=== PATIENT | male | born 2005 | race Caucasian/White ===

== ENCOUNTER 2023-01-21 12:28 | Emergency (ER) | payer MEDICAID ==
[~2023-01-21] VITALS: Ht 175.3 cm; Wt 77.3 kg
[2023-01-21 12:32] VITALS: BP 136/83
[2023-01-21 12:59] LABS: BASOPHILS % (AUTO) 0.5 % (0-1); EOSINOPHILS % (AUTO) 0 % (0-6); HEMATOCRIT 43.9 % (42.0-52.0); HEMOGLOBIN 15.1 g/dl (14.0-17.9); LYMPHOCYTES # (AUTO) 0.3 X10'3 (1.1-4.8); MEAN CORPUSCULAR HGB CONC 34.4 g/dL (33.0-36.5); MEAN PLATELET VOLUME 8.7 FL (7.4-10.4); MONOCYTES # (AUTO) 0.6 X10'3 (0-0.9); MONOCYTES % (AUTO) 9.7 % (2-12); NEUTROPHILS # (AUTO) 5.5 X10'3 (1.8-7.7); NEUTROPHILS % (AUTO) 85.8 % (42-75); PLATELET COUNT 214 X10'3 (140-440); RED BLOOD COUNT 4.88 X10'6 (4.70-6.10); RED CELL DISTRIBUTION WIDTH 14.1 % (11.5-14.5); WHITE BLOOD COUNT 6.4 X10'3 (4.5-11.0)
[2023-01-21 13:13] LABS: ALANINE AMINOTRANSFERASE 19 U/L (12-78); ALBUMIN 4.4 G/DL (3.4-5.0); ALBUMIN/GLOBULIN RATIO 1.1 (1.1-1.5); ALKALINE PHOSPHATASE 62 IU/L (20-180); ANION GAP 12 (8-16); ASPARTATE AMINO TRANSFERASE 25 U/L (10-37); BILIRUBIN,TOTAL 0.7 MG/DL (0.1-1.0); BLOOD UREA NITROGEN 10 MG/DL (7-18); BUN/CREATININE RATIO 9.8 (10.0-20.0); CALCIUM 9.9 MG/DL (8.5-10.1); CHLORIDE 99 MMOL/L (99-107); CREATININE 1.02 MG/DL (0.60-1.10); GLUCOSE 88 MG/DL (70-104); LIPASE < 50 U/L (73-393); POTASSIUM 3.3 MMOL/L (3.5-5.1); SODIUM 136 MMOL/L (135-145); TOTAL CARBON DIOXIDE 24.9 MMOL/L (24-32); TOTAL PROTEIN 8.3 G/DL (6.4-8.2); eGFR > 90 ML/MIN
[2023-01-21] MEDS ORDERED: ondansetron/PF 4mg/2ml inj IV ONE (13:45)
[2023-01-21] MEDS ORDERED: normal saline 1000ML IV soln IVB ONE (13:45)
[2023-01-21] MEDS ORDERED: famotidine/PF 10 mg/ml inj IV ONE (13:45)
[2023-01-21] MEDS ORDERED: ONDA4TAB12 PO (13:45)
== END 2023-01-21 14:38 | disposition home or self-care (01) ==
LOC: ER 12:29
DX: B34.9 Viral infection, unspecified (principal); R11.2 Nausea with vomiting, unspecified; E86.0 Dehydration; Z79.899 Other long term (current) drug therapy
CPT/HCPCS: 36415; 80053; 83690; 84443; 85025; 96374; 99283; J2405; J7030

== ENCOUNTER 2025-01-17 15:40 | Emergency (ER) | payer MEDICAID ==
[~2025-01-17] VITALS: Ht 175.3 cm; Wt 106.5 kg
[~2025-01-17 15:40] MED LIST: ONDA-243 PO
[2025-01-17 15:50] VITALS: BP 140/89; PULSE 65; RESP 16; TEMP 98.7; O2SAT 100
== END 2025-01-17 16:40 | disposition home or self-care (01) ==
LOC: ER 15:41
DX: M79.10 Myalgia, unspecified site (principal); M54.2 Cervicalgia; J00 Acute nasopharyngitis [common cold]; Z88.8 Allergy status to other drugs, medicaments and biological substances
CPT/HCPCS: 99282

== ENCOUNTER 2025-02-27 14:55 | Emergency (ER) | payer MEDICAID ==
[~2025-02-27] VITALS: Ht 175.3 cm; Wt 105.8 kg
[2025-02-27 15:03] VITALS: BP 125/71; PULSE 85; RESP 16; TEMP 97.9; O2SAT 96
--- NOTE | 2025-02-27 15:32 | Physician Documentation ---
History of Present Illness ~ Chief Complaint: Jaw Pain Stated Complaint: JAW PAIN Time Seen by MD: 16:09 OK to notify your PCP?: Yes Source: patient Mode of Arrival: POV Exam Limitations: no limitations HPI 19-year-old male complains of having left lower jaw pain with motion and a clicking sound with eating over the past 3 days. He mentions that with eating it hurts more in his jaw if he is chewing on the left side but does not hurt whe n chewing on the right side. Denies any tooth pain or drainage. He also mentions that when he brushes his teeth he has noticed having more gum tenderness and some slight bleeding. Tetanus Within 5 Years: Yes Medication Reconciliation Allergies: Coded Allergies: atomoxetine (Unverified Allergy, Unknown, 02/27/25) Scheduled PRN ONDANSETRON ODT 4mg tablet (Ondansetron Odt), 1 TABLET PO Q6H PRN for nausea/vomiting Past Medical History Past Medical History: No Pertinent History Past Surgical History: no surgical history Alcohol Use: None Drug Use: none Lives In: Home Review of Systems All Other Systems at this time: Reviewed and Negative Physical Exam Vital Signs: RN Vital Signs have been reviewed: Yes, Temperature: 97.9, Source: Temporal, Heart Rate: 85, Respiratory Rate: 16, BP: 125/71, Pulse Oximetry: 96, Weight: 105.800 Oxygen Flow Rate: 0 Pulse Oximetry Reflects: adequate oxygenation Physical Exam General: Alert, no apparent distress. HEENT: PERRL, EOMI, no injection, moist mucous membranes. Tenderness to upper masseter muscle with motion only. Respiratory: Lungs clear, no respiratory distress. Chest: No accessory muscle use. Cardiovascular: Regular rate and rhythm, no murmurs. Gastrointestinal: Soft, nontender, nondistended. Bowels sounds present. Extremities: Normal range of motion, no deformity. Neurologic: Oriented x4. Psychiatric: Normal mood and affect. Skin: Normal color, warm and dry. No edema, no ecchymosis. Mouth: normal inspection Teeth: normal inspection Neck: non-tender, full range of motion, normal alignment Progress Results/Orders Reviewed/noted all lab results: Yes Results/Orders Vital Signs 02/27/25 15:03 Temp 97.9 Pulse 85 Resp 16 B/P (MAP) 125/71 Pulse Ox 96 O2 Flow Rate 0 Medical Decision Making Findings 19-year-old male with pain when eating at left jaw and feels a clicking as well for the past 3 days. He has not taken any medications for his pain at home prior to arrival. We discussed this is likely TMJ however he may have an early tooth abscess beginning that could be causing this as well. We discussed using shared decision-making to opted not to start him on antibiotics as his tooth exam is normal however if this gets worse or if he starts to have tooth pain he may need to start an antibiotic and see a dentist. Discussed with the treatment for TMJ is his pain medication, anti-inflammatories, , heat the possible physical therapy or chiropractic therapy and may include Botox injections to relax the muscle. We discussed they should follow up with his primary care provider in the next 3 days and return back here for any new or worsening sympt oms. Tylenol given while in department. Differential Dx:Considerations: Include: Contusion, Foreign body, Fracture, facial Departure Disposition: 01 HOME / SELF CARE / HOMELESS Impression: Primary Impression: TMJ (sprain of temporomandibular joint) Condition: Stable Discharge Instructions: Temporomandibular Joint Syndrome Additional Instructions: Please take Tylenol and/or ibuprofen for pain relief at home. If this does not resolve by itself within the next week or so you may need further follow up such as physical therapy, chiropractic or Botox injections. Please follow up with the primary care provider in the next 3 days and return back here for any new or worsening symptoms. Referrals: NO PRIMARY CARE PROVIDER (PCP) Education Educated: Patient Educated regarding: diagnosis, treatment, prognosis, need for follow up Signature Scribe Signature: . Attestation: Scribed for Ellen Mahoney Electrologist by Ellen Nelson NP . 02/27/25 17:09 ELLEN MAHONEY [employer] Feb 27, 2025 15:32
[2025-02-27] MEDS: acetaminophen 325mg tablet PO ONE (17:13)
== END 2025-02-27 17:16 | disposition home or self-care (01) ==
LOC: ER 14:56
DX: S03.42XA Sprain of jaw, left side, initial encounter (principal); Z88.8 Allergy status to other drugs, medicaments and biological substances; X58.XXXA Exposure to other specified factors, initial encounter; Y93.89 Activity, other specified; Y92.89 Other specified places as the place of occurrence of the external cause; Y99.8 Other external cause status
CPT/HCPCS: 99282